=== PATIENT | male | born 1950 | race Caucasian/White ===

== ENCOUNTER 2019-08-22 11:27 | Day surgery (SDC) | payer MEDICARE, BC ==
[~2019-08-22] VITALS: Ht 172.7 cm; Wt 86.8 kg
[~2019-08-22 11:27] MED LIST: ASCO500T8 PO; ASPI-496 PO; ATOR-2 PO; FINA5TAB4 PO; LEVO88TA4 PO; MAGN71.5 PO; METF500T17 PO; METO25TA35 PO; MULT1TAB60 PO; PANT40TA3 PO; PRAS10TA4 PO; UBID100C41 PO; VITAMIN PO
[2019-08-22 12:06] VITALS: BP 121/82
[2019-08-22] MEDS ORDERED: LACTATED RINGERS 1,000 ML IV SCH (12:09)
[2019-08-22] MEDS ORDERED: LIDOCAINE 1%, 20ML ONE (13:35)
[2019-08-22] MEDS ORDERED: BUPIVACAINE/PF 0.5% ONE (13:35)
[2019-08-22] MEDS ORDERED: MIDAZOLAM 1 MG/ML, 2ML ONE (13:39)
[2019-08-22] MEDS ORDERED: FENTANYL PF 250 MCG/5ML ONE (13:39)
[2019-08-22] MEDS ORDERED: PROPOFOL 10 MG/ML, 20ML ONE (13:44)
[2019-08-22] MEDS ORDERED: DEXAMETHASONE 4 MG/ML, 1ML ONE (13:44)
[2019-08-22] MEDS ORDERED: ONDANSETRON 2MG/ML, 2ML ONE (13:44)
[2019-08-22] MEDS ORDERED: CEFAZOLIN 1,000 MG ONE (13:44)
[2019-08-22] MEDS ORDERED: OXYcodone 5 MG/5 ML ORAL.SOL UDC PO PRN (15:00)
[2019-08-22] MEDS ORDERED: MIDAZOLAM 1 MG/ML, 2ML IV PRN (15:00)
[2019-08-22] MEDS ORDERED: MEPERIDINE/PF 25MG/ML,1ML IVPush PRN (15:00)
[2019-08-22] MEDS ORDERED: FENTANYL PF 100 MCG/2ML IV PRN (15:00)
[2019-08-22] MEDS ORDERED: DIPHENHYDRAMINE 50 MG/ML, 1ML IVPush PRN (15:00)
[2019-08-22] MEDS ORDERED: METOPROLOL 1 MG/ML, 5ML IV PRN (15:00)
[2019-08-22] MEDS ORDERED: PROMETHAZINE 25 MG/ML, 1ML IV PRN (15:00)
[2019-08-22] MEDS ORDERED: EPHEDRINE 50 MG/ML, 1ML IVPush PRN (15:00)
[2019-08-22] MEDS ORDERED: MORPHINE SULFATE 4 MG/ML, 1ML IVPush PRN (15:00)
[2019-08-22] MEDS ORDERED: ONDANSETRON ODT 8 MG PO PRN (15:00)
[2019-08-22] MEDS ORDERED: ACETAMINOPHEN 325 MG TABLET PO PRN (15:00)
[2019-08-22] MEDS ORDERED: EPHEDRINE 50 MG/ML, 1ML IM PRN (15:00)
[2019-08-22] MEDS ORDERED: ONDANSETRON 2MG/ML, 2ML IV PRN (15:00)
[2019-08-22] MEDS ORDERED: METOPROLOL TARTRATE 25 MG TABLET PO SCH (21:00)
[2019-08-22] MEDS ORDERED: metFORMIN 500 MG TABLET PO SCH (21:00)
[2019-08-22] MEDS ORDERED: ATORVASTATIN 80 MG TABLET PO SCH (21:00)
[2019-08-23] MEDS ORDERED: LEVOTHYROXINE 88 MCG TABLET PO SCH (09:00)
[2019-08-23] MEDS ORDERED: PANTOPROZOLE 40MG TABLET PO SCH (09:00)
[2019-08-23] MEDS ORDERED: PRASUGREL 10 MG TABLET PO SCH (09:00)
[2019-08-23] MEDS ORDERED: ASCORBIC ACID 500 MG TABLET PO SCH (09:00)
[2019-08-23] MEDS ORDERED: FINASTERIDE 5 MG TABLET PO SCH (09:00)
[2019-08-23] MEDS ORDERED: MULTIVITAMIN 1 TABLET PO SCH (09:00)
== END 2019-08-22 16:30 | disposition home or self-care (01) ==
LOC: OUT 11:27
PROVIDERS: ATTEND Urology
DX: N43.3 Hydrocele, unspecified (principal); N40.0 Benign prostatic hyperplasia without lower urinary tract symptoms; I10 Essential (primary) hypertension; E11.9 Type 2 diabetes mellitus without complications; Z95.1 Presence of aortocoronary bypass graft
CPT/HCPCS: 10060; 55040; 82962; 93005; J0690; J1100; J2250; J2405; J2704; J3010; J7120